=== PATIENT | female | born 1990 | race Caucasian/White ===

== ENCOUNTER 2023-08-29 20:38 | Emergency (ER) | payer BC, SELFPAY ==
[2023-08-29 20:46] VITALS: BP 131/92; PULSE 87; RESP 15; TEMP 37.6; O2SAT 100; BMI 32.6
--- NOTE | 2023-08-29 21:22 | ED.GENADUL1 ---
HPI - General Adult General Chief complaint: Abdominal Pain Stated complaint: Post Operative Complications Time Seen by Provider: 08/29/23 21:04 Source: patient Mode of arrival: walk-in Limitations: no limitations History of Present Illness HPI narrative: patient describes abdominoplasty 5 days ago at [facility] due to excessive skin from past . States since surgery she has had umbilical pain. Tonight she noticed yellow drainage on her steri strips and came in for evaluation. No fever. No pain of her lower abdominal incision except pain at the umbilicus that has not increased. No nausea and otherwise feels well Related Data Home Medications Medication Instructions Recorded Confirmed desvenlafaxine succinate 100 mg mg PO 08/29/23 tablet,extended release 24 hr Allergies Allergy/AdvReac Type Severity Reaction Status Date / Time doxycycline AdvReac Mild GI upsest Verified 08/29/23 20:50 Review of Systems ROS Status of ROS 10 or more systems reviewed and unremarkable except as noted in history and below Exam Constitutional Vital Signs, click to edit/add: Last Vital Signs Temp 99.7 F 08/29/23 20:46 Pulse 87 08/29/23 20:46 Resp 15 08/29/23 20:46 BP 131/92 H 08/29/23 20:46 Pulse Ox 100 08/29/23 20:46 O2 Del Method Room Air 08/29/23 20:46 Common normals: no apparent distress, average body habitus, oriented x3, no limitations, healthy appearing, alert and well nourished Eye Common normals: PERRL, EOMs intact bilaterally and conjunctivae normal Respiratory Common normals: normal respiratory effort, no retractions, no use of accessory muscles and clear to auscultation bilaterally Cardio Common normals: regular rate, regular rhythm, S1 normal heart sound and S2 normal heart sound GI Other: lower abdominal wall incision with steri strips in place. No erythema or swelling. Dry yellow clear drainage of strips. Nontender GI image (female): 1. abdominal wall incision Extremity Common normals: normal to inspection and full ROM Neuro Common normals: oriented x3, CN's II-XII intact bilaterally, moves all extremities and no focal motor deficits Psych Appearance: grossly normal Course Vital Signs Vital signs: Vital Signs Temperature 99.7 F 08/29/23 20:46 Pulse Rate 87 08/29/23 20:46 Respiratory Rate 15 08/29/23 20:46 Blood Pressure 131/92 H 08/29/23 20:46 Pulse Oximetry 100 08/29/23 20:46 Oxygen Delivery Method Room Air 08/29/23 20:46 Temperature 99.7 F 08/29/23 20:46 Pulse Rate 87 08/29/23 20:46 Respiratory Rate 15 08/29/23 20:46 Blood Pressure 131/92 H 08/29/23 20:46 Pulse Oximetry 100 08/29/23 20:46 Oxygen Delivery Method Room Air 08/29/23 20:46 Medical Decision Making MDM Narrative Medical decision making narrative: patient presents with concern of possible post op wound infection. Her incision and steri strips look ok. She is afebrile . Has elevated CRP as expected post op. Normal WBC. Patient re assured and advised to follow up with her doctor in a couple of days for recheck Lab Data Labs: Lab Results 08/29/23 Range/Units 21:50 WBC 8.2 (4.0-11.0) 10^3/uL RBC 3.96 L (4.20-5.40) 10^6/uL Hgb 11.4 L (12.0-16.0) g/dL Hct 34.4 L (36.0-48.0) % MCV 86.9 (81.0-99.0) fL MCH 28.8 (26.7-34.0) pg MCHC 33.1 (29.9-35.2) g/dL RDW 12.0 (11.0-15.0) % Plt Count 321 (150-450) 10^3/uL MPV 10.3 (9.5-13.5) fL Neut % (Auto) 63.4 (43.0-75.0) % Lymph % (Auto) 28.4 (20.5-60.0) % [place] % (Auto) 6.4 (1.7-12.0) % Eos % (Auto) 1.1 (0.9-7.0) % Baso % (Auto) 0.2 (0.2-2.0) % Neut # (Auto) 5.2 (1.4-6.5) 10^3/uL Lymph # (Auto) 2.3 (1.2-3.8) 10^3/uL [place] # (Auto) 0.5 (0.3-0.8) 10^3/uL Eos # (Auto) 0.1 (0.0-0.7) 10^3/uL Baso # (Auto) 0.0 (0.0-0.1) 10^3/uL Abs Immat Gran (auto) 0.04 H (0.00-0.03) 10^3/uL Imm/Tot Granulo (auto) 0.5 (0.0-0.5) % ESR 68 H (<=20) mm/hr Sodium 137 (136-145) mmol/L Potassium 3.6 (3.5-5.1) mmol/L Chloride 102 (98-107) mmol/L Carbon Dioxide 26.0 (21.0-32.0) mmol/L Anion Gap 12.6 BUN 13.0 (7.0-18.0) mg/dL Creatinine 0.78 (0.55-1.02) mg/dL Est GFR ( Amer) >60 (>=60) Est GFR (Non-Af Amer) >60 (>=60) BUN/Creatinine Ratio 16.7 Glucose 98 (74-106) mg/dL Calcium 9.3 (8.5-10.1) mg/dL C-Reactive Protein 0.84 H (<=0.50) mg/dL Discharge Plan Discharge Chief Complaint: Abdominal Pain Clinical Impression: Encounter for postoperative wound check Prescriptions / Home Meds: No Action desvenlafaxine succinate 100 mg tablet extended release 24 hr PO Instructions: Acute Wounds (ED) Additional Instructions: follow up with your family doctor in a couple of days for recheck Referrals: Joel David MD [Primary Care Provider] - 1 week
[2023-08-29 22:00] LABS: Basophils Percent Auto 0.2 % (0.2-2.0); Eosinophils Absolute Auto 0.1 10^3/uL (0.0-0.7); Eosinophils Percent Auto 1.1 % (0.9-7.0); Hematocrit 34.4 % (36.0-48.0); Hemoglobin 11.4 g/dL (12.0-16.0); Immature Granulocytes Abs Auto 0.04 10^3/uL (0.00-0.03); Immature Granulocytes Pct Auto 0.5 % (0.0-0.5); Lymphocytes Absolute Auto 2.3 10^3/uL (1.2-3.8); Lymphocytes Percent Auto 28.4 % (20.5-60.0); Mean Corpuscular HGB Conc 33.1 g/dL (29.9-35.2); Mean Corpuscular Hemoglobin 28.8 pg (26.7-34.0); Mean Corpuscular Volume 86.9 fL (81.0-99.0); Mean Platelet Volume 10.3 fL (9.5-13.5); Monocytes Absolute Auto 0.5 10^3/uL (0.3-0.8); Monocytes Percent Auto 6.4 % (1.7-12.0); Neutrophils Absolute Auto 5.2 10^3/uL (1.4-6.5); Neutrophils Percent Auto 63.4 % (43.0-75.0); Platelet Count 321 10^3/uL (150-450); Red Blood Count 3.96 10^6/uL (4.20-5.40); White Blood Count 8.2 10^3/uL (4.0-11.0)
[2023-08-29 22:10] LABS: Anion Gap 12.6; BUN Creatinine Ratio 16.7; Calcium 9.3 mg/dL (8.5-10.1); Chloride 102 mmol/L (98-107); Erythrocyte Sedimentation Rate 68 mm/hr (<=20); Estimated GFR (African America >60 (>=60); Estimated GFR (Non-African Ame >60 (>=60); Glucose 98 mg/dL (74-106); Potassium 3.6 mmol/L (3.5-5.1); Sodium 137 mmol/L (136-145)
[2023-08-29 22:11] LABS: C Reactive Protein 0.84 mg/dL (<=0.50)
== END 2023-08-29 22:58 | disposition home or self-care (01) ==
LOC: ER 20:47
PROVIDERS: Emergency Provider Internal Medicine; PCP Family Medicine
DX: Z48.89 Encounter for other specified surgical aftercare (principal)
CPT/HCPCS: 36415; 80048; 85025; 85652; 86140; 99283

== ENCOUNTER 2024-11-09 18:36 | Outpatient (REF) | payer BC, SELFPAY ==
--- OUTSIDE RECORDS SUMMARY | 2024-11-09 18:40 | XMS_ITS | CCD ---
Author Organization [facility] Inform ion Partnership [facility] Care Team Providers Care Switch Box Installer Name Role Phone Lidya Cameron Unavailable DR LORI GUTIERREZ Primary Care Unavailable SABRINA HERNADEZ Admitting Unavailable SABRINA HERNADEZ Attending Unavailable DR JOE GUERRA Consulting Unavailable SABRINA HERNADEZ Consulting Unavailable AUBREY JUAREZ MD Attending Unavailable Allergies Allergy Classification Reported Allergen(s) Allergy Type Date of Onset Reaction(s) Facility (1 source) Doxycycline Drug Allergy [facility] Other (1 source) Doxycycline Drug Allergy 12-24-2022 [facility] Repository Medications Current Medications Medication Drug Class(es) Dates Sig (Normalized) Sig (Original) amoxicillin 500 mg oral capsule (1 source) Penicillin-class Antibacterial Start: 08-02-2022 take 1 capsule by mouth every eight hours Amoxicillin 500 MG 1 capsule Orally three times a day for 10 day(s) Jul, Active Desvenlafaxine (1 source) Serotonin and Norepinephrine Reuptake Inhibitor Pristiq Active isoniazid 300 mg oral tablet (1 source) Antimycobacterial Start: 07-17-2016 take 1 tablet by mouth every twenty-four hours Isoniazid 300 MG 1 cap(s) Orally once daily Jul, Active predniSONE 20 mg oral tablet (1 source) Start: 08-02-2022 take 1 tablet by mouth every twelve hours predniSONE 20 MG 1 tablet Orally 2 times a day for 5 day(s) Jul, Active QUEtiapine (1 source) Atypical Antipsychotic SEROquel Active Problems Active Problems Problem Classification Problem Date Documented Da te Episodic/Chronic Immunizations and screening for infectious disease (1 source) Inactive tuberculosis; 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] Episodic Other upper respiratory infections (3 sources) Pain in throat; Translations: [Acute pharyngitis, unspecified] Episodic Unclassified (3 sources) COUGH, UNSPECIFIED; Translations: [COUGH, UNSPECIFIED] Onset: 12-28-2022 Past or Other Problems Problem Classification Problem Date Documented Da te Episodic/Chronic Unclassified (1 source) COUGH, UNSPECIFIED; Translations: [COUGH, UNSPECIFIED] Onset: 12-24-2022 Results Test Name Value Interpretation Reference Range Facility XR LS SPINE W BEND MIN 6 VIE WSon 01-08-2023 XR LS SPINE W BEND MIN 6 VIEWS Xrays Lumbar Spine upright AP lateral oblique flexion and extension 6 views CLINICAL HISTORY: PAIN, lower back pain COMPARISON: None FINDINGS: 5 lumbar type vertebral bodies show normal lumbar body height and alignment with minimal dextrocurvature. There is no disc space narrowing or spondylosis. Minimal to no facet arthropathy. No spondylolysis on the oblique views. Alignment is maintained with flexion and extension. IMPRESSION: Essentially negative lumbar spine. No significant degenerative change or acute process. Electronically signed by: Nestor Ochoa MD 01/07/2023 10:07 PM CDT Technologist: BALAJI Dictated By: NESTOR OCHOA MD Signed By: NESTOR OCHOA MD Signed Out: 01/07/23 23:07:43 Normal [facility] XR CHEST 1 Von 12-24-2022 XR CHEST 1 V EXAMINATION: XR CHEST 1 V HISTORY: SHORTNESS OF BREATH , cough, choked on food 4 days ago COMPARISON: No relevant comparison available. FINDINGS: LUNGS: No significant pulmonary parenchymal abnormalities. VASCULATURE: No increased pulmonary vasculature. PLEURA: No pneumothorax, effusion, or pleural thickening. CARDIAC: No cardiomegaly or cardiac silhouette abnormality. MEDIASTINUM: No visible mass or adenopathy. BONES: No fracture or visible bone lesion. OTHER: Negative. IMPRESSION: 1. No acute cardiopulmonary process. Electronically authenticated by: JEO GUERRA Date: 2022-12-24 11:56 Normal [facility] Quick Strepon 08-02-2022 S. pyogenes Org specific cx Ql (Throat) Positive [facility] Other Quick Strep [facility] Other Consultation Noteon 03-05-20 Consultation Note HOSPITAL REGULATIONS: ALL Positive Important Negative Findings Shall Be Recorded. Date of 03/03/2020 Consultation: Attending Thomas Alfredo MD, FACOG Physician: Consulting Thomas Alfredo MD, PATRICE Physician: EVALUATION NOTE: 03/03/2020 The patient is a 29-year-old 2, para 1, AB 0 white female at 21 weeks gestation who presented to Labor and Delivery complaining of lower abdominal cramping. She stated that she was reaching for the dog and the dog moved and the patient fell hitting the bed on her abdomen. She had cramping as a result of this and was concerned and consulted her normal [employer] in [place] whose coverage told her to get to the closest hospital immediately. On evaluation, her vital signs were stable, 36.8 temperature, blood pressure 114/64, pulse 84, respirations 16. Head and E.E.N.T. normal. Lungs were clear. Heart regular rate and rhythm. Abdomen was soft, nontender. Negative for guarding, negative for rebound. Positive bowel sounds. Uterus was soft, nontender. No contractions were appreciated on examination or on the monitors. heart tones were good in the 140s. She had a small umbilical hernia but this was not causing her any problem. She had minimal tenderness in the round ligaments. Back negative for costovertebral angle tenderness. Extremities were nontender. We had a long discussion as far as what we felt would represent concerns over labor or other signs or symptoms of problem. We discussed the fact that should she have any bleeding, increasing pain, constant pain, contractions more than three in an hour that last more than thirty seconds or any other concerns that she should call back. We felt that this represented pull and some normal pains of and if she was able to follow these instructions that she should be fine. She can call back for any problems. Thomas Alfredo MD, PATRICE gls Dictated: 03/03/2020 #[id number] Typed: 03/04/2020 #[id number] cc: Thomas Alfredo MD, PATRICE [facility] Comment on above: Result Comment: Elec tronically Signed By: Thomas Alfredo MD\.br\Date and Time Signed: 03/05/20 21:16 EDT Coding Summary.on 03-04-2020 Coding Summary. CODING DATE: 03/04/2020 FINAL [facility] STATUS: Home (Routine DC) PAYOR: [facility] [place] ADMIT DX: REASON FOR VISIT DX: Z34.82 Encounter for supervision of other normal , second trimester FINAL DX: PRINCIPAL: Z34.82 Encounter for supervision of other normal , second trimester SECONDARY: Z3A.27 27 weeks gestation of PYMT PROC APC STAT DESCRIPTION DOCTOR NAME DATE NOTE: The code number assigned matches the documented diagnosis and / or procedure in the patient's chart. However, the narrative phrase printed from the coding software may appear abbreviated, or result in slightly different terminology. Coded By: Jerrica Galarza CphT Date Saved: 03/04/2020 02:23 pm [facility] Nursing Assessmenton 020 Nursing Assessment [id number] #1.00CD:127 [facility] Consent for Treatmenton 02-05 Consent for Treatment [id number] #1.00CD:127 [facility] Discharge Instructionson Discharge Instructions [id number]#1.00CD:127 [facility] Discharge Instructions Given Worseningon 03-02-2020 Discharge Instructions Given Worsening The following Patient Education Materials have been given to the patient: EducationMaterial [facility] Inpatient Clinical Summaryon 03-02-2020 Inpatient Clinical Summary [place] [address] Clinical Summary Person Information Name: ADRIANNE BHATT/[facility] Age: 29 Years : 1990 Sex: Female PCP: Lori Fraser MD Marital Status: Race: White Ethnicity: Non- or Language: Serbian Visit Id: Visit Reason: -CRAMPING Speciality: Acuity: Enc Type: OB Triage Med Service: Obstetrics Arrival: 03/02/2020 11:21:26 Discharge: 03/02/2020 12:20:00 Dispo Type: Home (Routine DC) Address: [address] [place] [address] Provider Notes: Diagnosis: Problems No Problems Documented Smoking Status: Never Smoker Functional Status: Sensory Deficits: History of Falls: Mobility Assistance Prior to Admission: ADLs: Current Level of Assistance for Self-Care/Mobility: Cognitive Status: Allergies No Known Allergies Laboratory or Other Results This Visit (last charted value for your 03/02/2020 visit) No Laboratory or Other Results This Visit Measurements: Height: 160.0 cm Weight: 84.1 kg Blood Pressure: 114 mmHg / 64 mmHg BMI: 32.85 kg/m2 Procedures No Procedures Documented Immunizations No Immunizations Documented This Visit Final Med List: No Known Home Medications Care Team Members: Attending Physician: Thomas Alfredo MD Consulting Physician: Referring Physician: Follow up: With: Address: When: KAMRYN SNEED [address] [place] [address] Business (1) Within 1 to 2 weeks Comments: Call for any problems. Call for severe abdominal pain Return for contractions closer, longer, and harder Return if ruptured membranes or vaginal bleeding Patient Education Information: Normal [facility] Inpatient Patient Summaryon 03-02-2020 Inpatient Patient Summary [address] [address] Patient Discharge Instructions PERSON INFORMATION Name: ADRIANNE BHATT Date of : 1990 Current Date: 03/02/2020 12:37:42 PHYSICIANS Admitting Physician: Thomas Alfredo MD Primary Care Physician: Lori Fraser MD PCP Comment: Discharge Diagnosis: Condition at Discharge: Stable ADRIANNE BHATT has been given the following list of follow-up instructions, prescriptions, and patient education materials: PATIENT FOLLOW-UP INFORMATION Diet: Activity: Wound Care Instructions: Remove Your Dressing IN: Days Call Your Doctor For: IF UNABLE TO CONTACT YOUR PHYSICIAN AND YOU FEEL IT IS AN EMERGENCY, GO TO THE NEAREST EMERGENCY ROOM OR CALL 911 Home Treatment: Devices/Equipment: Special Services: Additional Instructions: Physician to provide the following pending test results: None Follow up: With: Address: When: KAMRYN SNEED [address] [place] [address] Business (1) Within 1 to 2 weeks Comments: Call for any problems. Call for severe abdominal pain Return for contractions closer, longer, and harder Return if ruptured membranes or vaginal bleeding In the event that this physician does not participate in your insurance network, please consult with your insurance company to find a nearby participating provider. Comment: MILLER Rodirguez MARIAH K, have received the attached patient education materials/instructio ns and have verbalized understanding. Patient Signature Date Clinican/Nurse Signature MEDICATION LIST Pharmacy Information: PATIENT EDUCATION INFORMATION Instructions: Medication Leaflets: Thank you for choosing [facility] Vital Signs Date Time Vital Sign Value Performing Clinician Facility 08-02-2022 13:00-0500 Body height 160.02 cm Lidya Cameron Other [facility] Other 08-02-2022 13:00-0500 Body mass index (BMI) [Ratio] 33.48 kg/m2 Lidya Cameron Other [facility] Other 08-02-2022 13:00-0500 Body temperature 97.8 [degF] Lidya Cameron Other [facility] Other 08-02-2022 13:00-0500 Body weight 85.73 kg Lidya Cameron Other [facility] Other 08-02-2022 13:00-0500 Respiratory rate 18 /min Lidya Cameron Other [facility] Other 08-02-2022 13:00-0500 SaO2% (BldA) [Mass fraction] 97 % Lidya Cameron Other [facility] Other Encounters Encounter Date Encounter Type Care Provider Facility Start: 01-01-2023 End: 01-02-2023 ambulatory AUBREY JUAREZ MD Facility:[id number] Start: 12-24-2022 End: 12-24-[address] LORI FRASER . Facility:[facility] Start: 08-02-2022 End: 08-02-2022 ambulatory Lidya Nisha Other [facility] Other Start: 08-02-2022 Office outpatient ne w 30 minutes Lidya Nisha [facility] Urgent Care Min Payers Date Payer Category Payer Unknown [id number] 1990 Unknown [id number] 1990 Unknown [id number] 1957 [facility] [id number] Social History Date Type Detail Facility Sex Assigned At [facility] Other Evaluation note 08-02-2022 Note Date & Type Note Facility 08-02-2022 Evaluation note Encounter Date Diagnosis Assessment Notes Jul, Sore throat (ICD-10 - J02.9) Jul, Strep pharyngitis (ICD-10 - J02.0) Strep throat material was printed Drink plenty fluids, get plenty of rest. Take Tylenol or Motrin for aches pains or fevers. Take the amoxicillin and prednisone as prescribed until gone. Follow-up with your family physician if no improvement in 2 to 3 days. [facility] Other History general Narrative - Reported Note Date & Type Note Facility History general Narrative - Reported Type Medical History LTBI Surgical History ovarian cyst resection 2013 [facility] Other Summary Purpose Family History No Family History Records FoundNo Family History Records FoundNo Family History Records Found Advance Directives No Advanced Directives Records FoundNo Advanced Directives Records FoundNo Advanced Directives Records Found Additional Source Comments INFORMATION SOURCE (unrecogn ized section and content) DATE CREATED AUTHOR 03/28/2020 [facility] DATE CREATED AUTHOR AUTHOR'S ORGANIZ ATION [facility]/28/2022 [facility] DATE CREATED AUTHOR AUTHOR'S ORGANIZ ATION 01/09/2023 [facility] REASON FOR VISIT (unrecogniz ed section and content) CARPIO CROSSOVER, SORE THROAT, SWOLLEN GLANDS FOR RECORDS PERTAINING TO PATIENTS WHO ARE OR HAVE BEEN ENROLLED IN A CHEMICAL DEPENDENCY/SUBSTANCEABUSE PROGRAM, SOME INFORMATION MAY BE OMITTED. This clinical summary was aggregated from multiple sources. Caution should be exercised in using it in the provision of clinical care. This summary normalizes information from multiple sources, and as a consequence, information in this document may materially change the coding, format and clinical context of patient data. In addition, data may be omitted in some cases. CLINICAL DECISIONS SHOULD BE BASED ON THE PRIMARY CLINICAL RECORDS. [employer] [facility]. provides no warranty or guarantee of the accuracy or completeness of information in this document.
[2024-11-16 13:09] LABS: Age Gdln ACOG Testing Note (.); HPV Aptima Negative (Negative); IGP, Aptima HPV, rfx 16/18,45 Note (.)
== END 2024-11-09 18:37 | disposition home or self-care (01) ==
LOC: LAB 18:36
PROVIDERS: PCP Family Medicine; Visit Provider Physician Assistant
DX: Z01.419 Encounter for gynecological examination (general) (routine) without abnormal findings (principal)
CPT/HCPCS: 87624; 88175